=== PATIENT | female | born 1990 | race African-American/Black ===

== ENCOUNTER 2018-10-03 05:38 | Emergency (ER) | payer SELFPAY ==
[~2018-10-03] VITALS: Ht 162.6 cm; Wt 96.0 kg
[2018-10-03] MEDS ORDERED: SODIUM CHLORIDE 0.9% 1,000 ML IV ONE (06:52)
[2018-10-03 07:01] LABS: CLARITY URINE CLEAR (CLEAR); COLOR URINE YELLOW (YELLOW); KETONES URINE NEGATIVE (NEGATIVE); LEUKOCYTE ESTERASE URINE NEGATIVE (NEGATIVE); NITRITE URINE NEGATIVE (NEGATIVE); OCCULT BLOOD URINE 1+ (NEGATIVE); PH URINE 6.5 (4.5-8.0); PROTEIN URINE 4+ (NEGATIVE); SPECIFIC GRAVITY URINE 1.021 (1.005-1.030)
[2018-10-03 07:10] LABS: BASOPHILS % 1.5 % (0.0-2.0); EOSINOPHILS % 1.5 % (0.0-5.0); HEMATOCRIT. 44.3 % (36.0-48.0); HEMOGLOBIN. 14.4 g/dL (12.0-16.0); LYMPHOCYTES % 32.9 % (20.0-50.0); MEAN CORPUSCULAR HEMOGLOBIN 26.9 pg (28.0-32.0); MEAN CORPUSCULAR VOLUME 82.6 fL (81.0-99.0); MEAN PLATELET VOLUME 10.8 fl (7.4-10.4); MONOCYTES % 10.6 % (2.0-8.0); NEUTROPHILS % 53.5 % (40.0-76.0); PLATELET 234 x1000/uL (130-400); RED BLOOD CELL COUNT 5.36 mill/uL (4.2-5.4); RED CELL DISTRIBUTION WIDTH 15.9 % (11.6-14.6)
[2018-10-03 07:15] LABS: CHLORIDE 111 mEq/L (98-107)
[2018-10-03 07:17] LABS: *AMPHETAMINES SCREEN URINE NEGATIVE (NEGATIVE)
[2018-10-03 07:18] LABS: *BARBITURATES SCREEN URINE NEGATIVE (NEGATIVE); *BENZODIAZEPINES SCREEN URINE NEGATIVE (NEGATIVE); *COCAINE SCREEN URINE NEGATIVE (NEGATIVE); METHADONE URINE SCREEN NEGATIVE (NEGATIVE); OPIATES URINE SCREEN NEGATIVE (NEGATIVE); PHENCYCLIDINE URINE SCREEN NEGATIVE (NEGATIVE)
[2018-10-03 07:19] LABS: HCG SCREEN NEGATIVE
[2018-10-03 07:26] LABS: CANNABINOID URINE SCREEN PRESUMTIVE POSITIVE (NEGATIVE)
[2018-10-03 07:42] LABS: INR 0.9; PROTHROMBIN TIME 9.4 sec (9.6-11.0)
[2018-10-03 10:50] VITALS: BP 113/71
== END 2018-10-03 11:16 | disposition home or self-care (01) ==
LOC: ER 05:38
DX: R60.0 Localized edema (principal); R80.9 Proteinuria, unspecified
CPT/HCPCS: 36415; 71045; 80053; 80305; 81003; 81025; 83880; 84484; 84703; 85025; 85379; 85610; 93005; 93970; 99284; J7030